=== PATIENT | female | born 1995 | race Native Hawaiian/Other Pacific Islander ===

== ENCOUNTER 2018-03-03 15:48 | Emergency (ER) | payer OTHER ==
[2018-03-03 15:55] VITALS: BP 153/112
--- NOTE | 2018-03-03 16:05 | EDPHY ---
H & P Time Seen by Provider: 03/03/18 16:01 HPI/ROS: CHIEF COMPLAINT: Left ring finger injury HISTORY OF PRESENT ILLNESS: 23-year-old female presents to the emergency department with injury to the left ring finger. She was at work just prior to arrival and crushed her finger between a bed and the wall. The incident happened just prior to arrival. She is right-hand dominant. She denies any other trauma or injury. ROS: Denies numbness or tingling in her fingers, retained foreign body, laceration or puncture wound. Past Medical/Surgical History: Negative Social History: Single, works as an Aide at [employer] Smoking Status: Never smoked Physical Exam: On examination the patient has some swelling and ecchymosis noted to the left 4th finger from about the mid phalanx to the distal aspect of the finger. No abrasion or puncture wound. Slightly decreased flexion at the D IP joint secondary to pain. No evidence of subungual hematoma. Normal sensation to light touch with normal 2 point discrimination. Constitutional: Initial Vital Signs Temperature (C) 36.6 C 03/03/18 15:53 Heart Rate 82 03/03/18 15:53 Respiratory Rate 18 03/03/18 15:53 Blood Pressure 153/112 H 03/03/18 15:53 O2 Sat (%) 94 03/03/18 15:53 O2 Delivery Mode Room Air Allergies/Adverse Reactions: No Known Allergies Allergy (Verified 03/03/18 15:52) Home Medications: Medication Instructions Recorded Albuterol 06/19/13 MDM/Departure - MDM Imaging Results: Imaging Impressions Finger X-Ray 03/03/18 15:56 Impression: Essentially undisplaced distal tuft fracture of the left fourth digit. Imaging: I viewed and interpreted images myself Procedures: The patient was placed in an Alumafoam splint and examined post application in good placement with normal CNC OPERATOR. ED Course/Re-evaluation: 23-year-old female presents to the emergency department with left ring finger injury. X-rays reveal nondisplaced tuft fracture. She was placed in Alumafoam splint and given orthopedic hand surgical referral. - Depart Disposition: Home, Routine, Self-Care Clinical Impression: tuft fracture left fourth finger Condition: Good Instructions: Finger Fracture (ED) Additional Instructions: Keep splint on until follow-up with orthopedic hand surgeon. Ibuprofen 600 mg every 8 hr as needed for pain. Ice and elevate to help reduce swelling. Referrals: Karina Santiago MD [Medical Doctor] - 2-3 days without fail (Orthopedic hand surgeon on-call)
== END 2018-03-03 16:50 | disposition home or self-care (01) ==
DX: S62.635A Displaced fracture of distal phalanx of left ring finger, initial encounter for closed fracture (principal); W23.1XXA Caught, crushed, jammed, or pinched between stationary objects, initial encounter; Y92.89 Other specified places as the place of occurrence of the external cause; Y99.0 Civilian activity done for income or pay; Y93.89 Activity, other specified
CPT/HCPCS: L3925